=== PATIENT | female | born 1995 | race Caucasian/White ===

== ENCOUNTER 2017-12-18 20:59 | Inpatient (IN) | payer OTHER ==
[~2017-12-18] VITALS: Ht 162.6 cm; Wt 100.0 kg
--- OUTSIDE RECORDS SUMMARY | ~2017-12-18 | XMS | Clinical Summary ---
Demographics + + + | Address | [address] | | | [place] [address] | + + + | Home Phone | | + + + | Preferred Language | Unknown | + + + | Marital Status | Single | + + + | Orthodox Affiliation | Unknown | + + + | Race | White | + + + | Ethnic Group | Not or | + + + Author + + + | Author | [facility] | + + + | Organization | [facility] | + + + | Address | Unknown | + + + | Phone | Unavailable | + + + Support + + + + + | Name | Relationship | Address | Phone | + + + + + | ESSIE PLUNKETT | ECON | [address] | | | | | [place] | | | | | [phone] | | + + + + + Care Team Providers + +------+ + | Care Air Pollution Engineer Name | Role | Phone | + +------+ + | Kvng Brandt MD | PP | | + +------+ + Source Comments EVAN is fully live on both [facility] and [facility] Allergies No Known Allergies Current Medications + + +-------+---------+------+------+-------+ | Prescription | Sig. | Disp. | Refills | Star | End | Statu | | | | | | t | Date | s | | | | | | Date | | | + + +-------+---------+------+------+-------+ | SEPTRA 80-400 mg | Take 1 Tab by mouth | | | | | Activ | | Oral Tablet | two times daily. | | | | | e | + + +-------+---------+------+------+-------+ Active Problems Not on file Social History + +-------+ +--------+------+ | Tobacco Use | Types | Packs/Day | Years | Date | | | | | Used | | + +-------+ +--------+------+ | Never Smoker | | | | | + +-------+ +--------+------+ + + + | Sex Assigned at | Date Recorded | | | | + + + | Not on file | | + + + Last Filed Vital Signs + + + + | Vital Sign | Reading | Time Taken | + + + + | Blood Pressure | 105/67 | 12/16/2008 11:21 AM PDT | + + + + | Pulse | - | - | + + + + | Temperature | - | - | + + + + | Respiratory Rate | - | - | + + + + | Oxygen Saturation | - | - | + + + + | Inhaled Oxygen | - | - | | Concentration | | | + + + + | Weight | 70.3 kg (155 lb) | 12/16/2008 11:21 AM PDT | + + + + | Height | 162.6 cm (5' 4") | 12/16/2008 11:21 AM PDT | + + + + | Body Mass Index | 26.61 | 12/16/2008 11:21 AM PDT | + + + + Plan of Treatment + + + + + | Health Maintenance | Due Date | Last Done | Comments | + + + + + | INFLUENZA VACCINE | | | | | (FLU SHOT) | 7 | | | + + + + + Results Not on filefrom Last 3 Months
--- OUTSIDE RECORDS SUMMARY | ~2017-12-18 | XMS | Clinical Summary ---
Demographics + + + | Address | [address] | | | [place] [address] | + + + | Home Phone | | + + + | Preferred Language | Unknown | + + + | Marital Status | Unknown | + + + | Buddhism Affiliation | Unknown | + + + | Race | Unknown | + + + | Ethnic Group | Unknown | + + + Author + + + | Author | [facility] | + + + | Organization | [facility] | + + + | Address | Unknown | + + + | Phone | Unavailable | + + + Care Team Providers + +------+ + | Care Filteration Operator Name | Role | Phone | + +------+ + PP | Unavailable | + +------+ + Allergies Not on File Current Medications Not on file Active Problems + + + | Problem | Noted Date | + + + | 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 | + + + Social History + +-------+ +--------+------+ | Tobacco Use | Types | Packs/Day | Years | Date | | | | | Used | | + +-------+ +--------+------+ | Never Assessed | | | | | + +-------+ +--------+------+ + + + | Sex Assigned at | Date Recorded | | | | + + + | Not on file | | + + + Plan of Treatment + + + + + | Health Maintenance | Due Date | Last Done | Comments | + + + + + | IMM HPV (1 of 3 - | | | | | Female 3 Dose | 6 | | | | Series) | | | | + + + + + | HIV Screening | | | | | | 0 | | | + + + + + | GC/Chlamydia | | | | | Screening | 1 | | | + + + + + | Tetanus | | | | | | 4 | | | + + + + + | Cervical Cancer | | | | | Screening | 6 | | | + + + + + | IMM Influenza (#1) | | | | | | 7 | | | + + + + + Results Not on filefrom Last 3 Months"
--- NOTE | 2017-12-19 22:47 | NUR ---
12/19/17 2247 Shi Thompson 6053-PATIENT ARRIVED TO PACU ON RA AWAKE DENIES PAIN OR NAUSEA. DRESSING CDI. SMALL AMT OF SHADOWING ON VÍCTOR PAD. FUNDUS AT UMBILICUS FIRM. SPINAL LEVEL AT T4. IV INFUSING AND INTACT WITH LR 30 PITOCIN. SR 2245-DR. BELL AT BEDSIDE
--- NOTE | 2017-12-21 10:20 | PR ---
[facility] [address] [facility] [place], [place] [address] Signed PP Progress Notes Datetime Report Generated by CPN: 12/21/2017 10:20 SUBJECTIVE: [id number] Pain: Within normal limits Nausea/Vomiting: Denies Flatus: Yes Vital Signs: [id number] Vital Signs: Reviewed; Within Normal Limits EXAM: [id number] Cardiovascular: Normal Respiratory: Normal Abdomen/Uterus: Normal Lochia: Normal Vulva/Perineum: Normal Breasts: Normal CVA Tenderness: Normal Extremities: Normal Incision: Normal Progress: Normal IMPRESSION/PLAN/PROCEDURES: [id number] Impression: Normal progression Plan: Continue present management Procedures: None Progress Notes: patient doing well. Encouraged up to shower and ambulation Signing Physician: Mirna Richardson MD Copies: ~ *Electronically Signed* 12/21/17 1020 MIRNA RICHARDSON MD PATIENT NAME: ANSLEY PLUNKETT PROGRESS NOTE DATE OF : 95 PHYSICIAN: MIRNA RICHARDSON MD RPT #: [id number] REPORT IS CONFIDENTIAL AND NOT TO BE RELEASED WITHOUT AUTHORIZATION
--- NOTE | 2017-12-22 07:58 | PR ---
[facility] [address] [facility] [place], [place] [address] Signed PP Progress Notes Datetime Report Generated by CPN: 12/22/2017 07:58 SUBJECTIVE: [id number] Pain: Within normal limits Nausea/Vomiting: Denies Flatus: Yes Bowel Movement: Yes Vital Signs: [id number] Vital Signs: Reviewed; Within Normal Limits EXAM: [id number] Cardiovascular: Normal Respiratory: Normal Abdomen/Uterus: Normal Lochia: Normal Vulva/Perineum: Normal Breasts: Normal CVA Tenderness: Normal Extremities: Normal Incision: Normal Progress: Normal IMPRESSION/PLAN/PROCEDURES: [id number] Impression: Normal progression Plan: Discharge Procedures: None Progress Notes: patient doing well. Ready to go home today Signing Physician: Mirna Richardson MD Copies: ~ *Electronically Signed* 12/22/17 0758 MIRNA RICHARDSON MD PATIENT NAME: ANSLEY PLUNKETT PROGRESS NOTE DATE OF : 95 PHYSICIAN: MIRNA RICHARDSON MD RPT #: [id number] REPORT IS CONFIDENTIAL AND NOT TO BE RELEASED WITHOUT AUTHORIZATION
--- NOTE | 2018-01-17 12:51 | OR ---
[facility] [address] [place], [place] [address] Signed DATE OF OPERATION: 12/19/2017 SURGEON: Tyra Rubin DO SYSTEMS DESIGN ENGINEER: Larry Griffin MD PROCEDURE PERFORMED: Primary low transverse section. PREOPERATIVE DIAGNOSES: 1. Intrauterine at 40 weeks gestation. 2. Non-reassuring heart tracing. 3. History of drug use in remission. POSTOPERATIVE DIAGNOSES: 1. Intrauterine at 40 weeks gestation. 2. Non-reassuring heart tracing. 3. History of drug use in remission. ANESTHESIA: Epidural. ESTIMATED BLOOD LOSS: 700 mL. COMPLICATIONS: None. SPECIMENS: 1. Placenta. 2. Cord gases. FINDINGS: Viable female born in the PARMINDER position with Apgars of 8 and 9 at 1 and 5 minutes respectively. Weight 7 pounds 9 ounces. No nuchal cord observed. Blood gases, venous pH of 7.35 and arterial 7.32 with no base excess. Normal uterus, tubes, ovaries, placenta, and cord. INDICATIONS: Electronically Signed By: TYRA RUBIN DO 01/17/18 1251 PATIENT NAME: ANSLEY PLUNKETT OPERATIVE REPORT DATE OF : [birth year] REPORT #: [id number] PHYSICIAN: TYRA RUBIN DO PCP: TYRA RUBIN DO REPORT IS CONFIDENTIAL AND NOT TO BE RELEASED WITHOUT AUTHORIZATION [facility] [address] [place] [id number] Signed Ms. Plunkett is a pleasant 22-year-old, G1, P0, with intrauterine at 40 weeks and 2 days gestation, who presented for elective induction of labor. Her cervix was closed, thick and high, and she received Cytotec for cervical ripening. The cervix ripened somewhat and a Cook catheter was inserted. heart tracings were reassuring throughout the day when the patient suddenly developed a prolonged deceleration that lasted approximately 6-7 minutes. I was presented urgently to the bedside and the patient had received one dose of terbutaline as well as IV fluid bolus and position changes, and the heart rate was again normal with moderate variability and accelerations noted. We discussed that she was remote to delivery. We removed the Cook catheter and her cervix was only 2 cm dilated. We reviewed prior ultrasounds that were suggestive of a nuchal cord or possibly cord near the shoulders. We discussed risks and benefits of in detail including the risks with future deliveries. The patient understands and wishes to proceed with primary low transverse delivery. TECHNIQUE: The patient was taken to the operating room where a time-out was performed to confirm correct patient and correct procedure. The patient had an epidural, which was previously placed and found to be adequate. She had a Ray catheter was previously in place as well. She was prepped and draped in the supine position with a bump under the right hip. Ancef 2 g preoperatively were given and no heparin was indicated per SCIP protocol. A time-out was performed to confirm correct patient and correct procedure, and the epidural was tested and found to be adequate. A Pfannenstiel skin incision was made 2 cm above the pubic symphysis and carried down to and through the fascia in the midline. The fascial incision was extended bilaterally using Hanson scissors. The fascia was grasped with Devyn's, elevated, and the underlying rectus dissected sharply and bluntly. The rectus muscles were divided bluntly in the midline and peritoneum was grasped with hemostats, elevated and incised sharply. Peritoneal incision was extended caudally and cephalad with blunt and sharp dissection, and the abdominal cavity was palpated with normal anatomy and no adhesions noted. An Cm self retractor was placed and the lower segment identified. Hysterotomy was then performed using a surgical scalpel and clear amniotic fluid was noted. Hysterotomy was extended bilaterally using blunt dissection. The surgeon's hand was then placed in the uterine cavity and the head was elevated into the maternal abdomen in the APRMINDER position and delivered with the assistance of fundal pressure. No nuchal cord was noted and the remainder of the baby delivered easily with the assistance of fundal pressure. Upon delivery, the was very vigorous and cried. The oral nasopharynx were bulb suctioned. The cord was doubly clamped and cut, and the handed to the waiting pediatric team for further care. A section of cord was obtained for blood gases. Cord blood was then obtained for routine analysis and the placenta was expressed intact with a centrally inserted three-vessel cord. No abnormalities were grossly noted in the placenta or the cord. The uterus was then cleared of any remaining products of conception and clot, and was noted to be somewhat boggy. The patient did receive Electronically Signed By: TYRA RUBIN DO 01/17/18 1251 PATIENT NAME: ANSLEY PLUNKETT OPERATIVE REPORT DATE OF : 95 REPORT #: [id number] PHYSICIAN: TYRA RUBIN DO PCP: TYRA RUBIN DO REPORT IS CONFIDENTIAL AND NOT TO BE RELEASED WITHOUT AUTHORIZATION [address] [address] Signed Pitocin and the uterus firmed up well. Hysterotomy was then closed using 0 Vicryl in a running locked suture. A 2nd imbricating stitch of 0 Vicryl was applied in a vertical manner with good hemostasis appreciated. The pelvis was irrigated and found to be hemostatic. The tubes and ovaries were examined and found to be normal. The Cm retractor was removed and the pelvis again examined and found to be hemostatic. A cell sheet was applied to the lower uterine segment and peritoneum was then reapproximated using 2-0 Vicryl in a running nonlocked manner. The rectus muscles were then reapproximated using 0 Vicryl in loose interrupted sutures and the rectus examined and found to be hemostatic. A cell powder was applied to the rectus and the fascia was then reapproximated using 0 Vicryl in a running nonlocked manner. Subcu was examined and irrigated and small bleeding was noted. This was made hemostatic with a combination of electrocautery and Yesenia powder. Subcu was then reapproximated using 3-0 Vicryl in a running nonlocked manner. Skin was reapproximated using surgical marcial with good hemostasis and cosmesis. The uterus was Crede'd for scant blood and the patient was taken the PACU in good stable condition. Sponge, needle, and instrument count was correct x2 at the end of the procedure. Dr. Griffin was present and participated in all portions of procedure. Tyra Rubin DO JDW/DEBBIEL /[id number] Copies: ~ Electronically Signed By: TYRA RUBIN DO 01/17/18 1251 PATIENT NAME: ANSLEY PLUNKETT OPERATIVE REPORT DATE OF : [birth year] REPORT #: [id number] PHYSICIAN: TYRA RUBIN DO PCP: TYRA RUBIN DO REPORT IS CONFIDENTIAL AND NOT TO BE RELEASED WITHOUT AUTHORIZATION
== END 2017-12-22 13:30 | disposition home or self-care (01) | DRG 765 ==
LOC: FBC 20:59
PROVIDERS: ADMIT Obstetrics & Gynecology
PROC: 10D00Z1 Extraction of Products of Conception, Low, Open Approach (ICD-10-PCS; principal; 2017-12-19 21:32)
DX: O76 Abnormality in fetal heart rate and rhythm complicating labor and delivery (principal); O40.3XX0 Polyhydramnios, third trimester, not applicable or unspecified; O99.824 Streptococcus B carrier state complicating childbirth; Z3A.40 40 weeks gestation of pregnancy; Z37.0 Single live birth; F12.11 Cannabis abuse, in remission; O99.334 Smoking (tobacco) complicating childbirth
CPT/HCPCS: 01960; 01961; 36415; 82803; 85027; 88307; C1763; J0690; J1885; J2274; J2405; J2590; J2765; J3010; J3105; J7120

== ENCOUNTER → 2019-04-04 | Emergency (ER) | payer OTHER | LOC: ED 18:03 | DX: M79.672 Pain in left foot (principal); Z53.21 Procedure and treatment not carried out due to patient leaving prior to being seen by health care provider ==

== ENCOUNTER 2021-08-16 09:03 | Emergency (ER) | payer OTHER ==
[~2021-08-16] VITALS: Ht 162.6 cm; Wt 72.0 kg
--- OUTSIDE RECORDS SUMMARY | 2021-08-16 09:14 | XMS ---
PreManage Notification: ANSLEY PLUNKETT Security Disability Coordinator Events No recent Security Events currently on file CRITERIA MET - Group Notification CARE PROVIDERS There are no care providers on record at this time. Malinda has no Care Guidelines for this patient. [place] VISIT COUNT (12 MO.) 1 ADITHYA Gomez TOTAL 1 NOTE: Visits indicate total known visits. ED/C VISIT TRACKING (12 MO.) 08/16/2021 09:05 ADITHYA Magaña [place] TYPE: Emergency COMPLAINT: - FACIAL INJURY INPATIENT VISIT TRACKING (12 MO.) No inpatient visits to display in this time frame [email or web address]
[2021-08-16] MEDS ORDERED: MUPIROCIN15 GM TOP (11:05)
== END 2021-08-16 11:18 | disposition home or self-care (01) ==
LOC: ED 09:03
DX: T65.891A Toxic effect of other specified substances, accidental (unintentional), initial encounter (principal); T20.60XA Corrosion of second degree of head, face, and neck, unspecified site, initial encounter; T32.0 Corrosions involving less than 10% of body surface; Y99.0 Civilian activity done for income or pay; F17.200 Nicotine dependence, unspecified, uncomplicated
CPT/HCPCS: 99283